=== PATIENT | male | born 1940 | race Caucasian/White ===

== ENCOUNTER 2021-12-02 07:27 | Inpatient (IN) ==
[2021-12-02 08:10] LABS: Basophils % 0.4 %; Red Cell Distribution Width 13.8 % (11.5-14.5)
[2021-12-02 08:11] LABS: Eosinophils # 0.3 K/mcL (0.0-0.6); Hematocrit 46.7 % (37.5-50.1); Hemoglobin 14.4 g/dL (12.9-16.9); Immature Granulocytes % 0.2 % (0-4); Immature Platelets 8.4 % (1.1-6.1); Lymphocytes # 0.9 K/mcL (0.6-4.6); Lymphocytes % 18.5 %; Mean Corpuscular HGB Conc 30.8 g/dL (31.6-35.5); Mean Corpuscular Hemoglobin 30.3 pg (28.0-33.3); Mean Corpuscular Volume 98.1 fL (83.0-100.0); Mean Platelet Volume 11.6 fL (9.4-12.4); Monocytes # 0.4 K/mcL (0.0-1.3); Neutrophils # 3.4 K/mcL (1.6-8.9); Platelet Count 130 K/mcL (140-400); Red Blood Count 4.76 M/mcL (4.19-5.50); Segmented Neutrophils % 67.9 %
[2021-12-02 08:30] LABS: Calcium 8.1 mg/dL (8.6-10.3); Potassium 4.3 mEq/L (3.5-5.1)
[2021-12-02 08:34] LABS: INR 1.1; Prothrombin Time 11.8 Seconds (9.4-12.1)
[2021-12-02 08:42] LABS: Troponin I 0.05 ng/mL (< 0.04)
[2021-12-02 08:46] LABS: Bacteria,Urine Few per hpf (None-Few); Bilirubin,Urine Negative (Negative); Blood,Urine Moderate (Negative); Clarity,Urine Clear (Clear); Color,Urine Yellow (Yellow); Glucose,Urine (UA) 70 mg/dL (Normal); Hyaline Casts,Urine Few per lpf (None Seen); Ketones,Urine Negative (Negative); Leukocyte Esterase,Urine Negative (Negative); Mucus,Urine Few per lpf (None-Few); Nitrite,Urine Negative (Negative); Protein,Urine >=600 mg/dL (Neg-Trace); Specific Gravity,Urine 1.017 (1.010-1.025); Squamous Epithelial Cell,Urine Few per hpf (None-Few); Urobilinogen,Urine Normal (Normal); WBC,Urine 0-3 per hpf (0-3)
[2021-12-02] MEDS ORDERED: Furosemide 40 MG/4 ML VIAL IVP ONE (08:54)
[2021-12-02] MEDS ORDERED: Ondansetron 4 MG/2 ML VIAL IVP PRN (09:20)
[2021-12-02] MEDS ORDERED: Melatonin 3 MG TABLET PO PRN (09:20)
[2021-12-02] MEDS ORDERED: Naloxone 0.4 MG/ML INJ IVP PRN (09:20)
[2021-12-02] MEDS ORDERED: Perflutren Lipid Microsphere 1.3 ML in 0.9 % Sodium Chloride 8.7 ML IVP PRN (09:22)
[2021-12-02 12:56] LABS: Troponin I 0.05 ng/mL (< 0.04)
[2021-12-02] MEDS: *HR* Heparin 5,000 UNIT/ML VIAL SQ SCH ×2 (15:22→21:35)
[2021-12-02 16:30] LABS: Albumin 2.7 g/dL (3.5-5.7); Uric Acid 7.2 mg/dL (2.3-7.6)
[2021-12-02] MEDS ORDERED: carvediloL 6.25 MG TABLET PO SCH (17:00)
[2021-12-02 18:03] LABS: Creatinine,Urine 41 mg/dL; Microalbumin,Urine > 1350 mg/L; Protein/Creatinine Ratio,Urine 5.42 mg/mg (0.00-0.20)
[2021-12-02] MEDS ORDERED: Furosemide 20 MG/2 ML VIAL IVP SCH (21:00)
[2021-12-02] MEDS: Furosemide 40 MG/4 ML VIAL IVP SCH (21:35)
[2021-12-03] MEDS: *HR* Heparin 5,000 UNIT/ML VIAL SQ SCH ×3 (05:23→21:56)
[2021-12-03] MEDS: Furosemide 40 MG/4 ML VIAL IVP SCH ×2 (08:34→21:55)
[2021-12-03 09:34] LABS: Basophils % 0.4 %
[2021-12-03 09:36] LABS: Eosinophils # 0.2 K/mcL (0.0-0.6); Eosinophils % 4.2 %; Hematocrit 43.6 % (37.5-50.1); Hemoglobin 13.5 g/dL (12.9-16.9); Immature Granulocytes % 0.2 % (0-4); Immature Platelets 8.3 % (1.1-6.1); Lymphocytes # 0.7 K/mcL (0.6-4.6); Lymphocytes % 14.8 %; Mean Corpuscular Hemoglobin 30.3 pg (28.0-33.3); Mean Corpuscular Volume 97.8 fL (83.0-100.0); Mean Platelet Volume 12.1 fL (9.4-12.4); Monocytes # 0.4 K/mcL (0.0-1.3); Monocytes % 7.9 %; Neutrophils # 3.5 K/mcL (1.6-8.9); Platelet Count 122 K/mcL (140-400); Red Blood Count 4.46 M/mcL (4.19-5.50); Segmented Neutrophils % 72.5 %; White Blood Count 4.8 K/mcL (4.3-11.1)
[2021-12-03 09:56] LABS: Chol/HDL Ratio 4.1 (0-4.9)
[2021-12-03 10:10] LABS: Thyroid Stimulating Hormone 1.623 mcIU/mL (0.340-5.600)
[2021-12-03] MEDS ORDERED: cefTRIAXone 1,000 MG in 0.9 % Sodium Chloride Mini Bag 100 ML IVPB SCH (12:00)
[2021-12-03] MEDS: cefTRIAXone 1,000 MG in Water for inj. (sterile) 10 ML IVP SCH (12:12)
[2021-12-03 13:35] LABS: Calcium 7.9 mg/dL (8.6-10.3); Potassium 4.5 mEq/L (3.5-5.1)
[2021-12-03] MEDS: carvediloL 6.25 MG TABLET PO SCH (16:32)
[2021-12-03] MEDS ORDERED: *HR* LORazepam 2 MG/ML VIAL IVP ONE (22:52)
[2021-12-04 01:35] LABS: Basophils % 0.4 %; Eosinophils # 0.2 K/mcL (0.0-0.6); Eosinophils % 4.8 %; Hematocrit 41.6 % (37.5-50.1); Hemoglobin 12.3 g/dL (12.9-16.9); Immature Granulocytes % 0.2 % (0-4); Lymphocytes # 0.7 K/mcL (0.6-4.6); Lymphocytes % 14.9 %; Mean Corpuscular HGB Conc 29.6 g/dL (31.6-35.5); Mean Corpuscular Hemoglobin 29.8 pg (28.0-33.3); Mean Corpuscular Volume 100.7 fL (83.0-100.0); Mean Platelet Volume 11.8 fL (9.4-12.4); Monocytes # 0.5 K/mcL (0.0-1.3); Monocytes % 9.1 %; Neutrophils # 3.5 K/mcL (1.6-8.9); Platelet Count 121 K/mcL (140-400); Red Blood Count 4.13 M/mcL (4.19-5.50); Red Cell Distribution Width 14.1 % (11.5-14.5); Segmented Neutrophils % 70.6 %
[2021-12-04 02:25] LABS: Estimated Average Glucose 128 mg/dl; Hemoglobin A1C 6.1 %
[2021-12-04 03:19] LABS: Calcium 7.7 mg/dL (8.6-10.3); Magnesium 1.8 mg/dL (1.6-2.6)
[2021-12-04 03:45] LABS: Complement C3 96 mg/dL (87-200)
[2021-12-04] MEDS: *HR* Heparin 5,000 UNIT/ML VIAL SQ SCH ×3 (05:25→21:44)
[2021-12-04] MEDS: carvediloL 6.25 MG TABLET PO SCH ×2 (09:48→16:32)
[2021-12-04] MEDS: Furosemide 40 MG/4 ML VIAL IVP SCH ×2 (09:48→21:44)
[2021-12-04] MEDS: cefTRIAXone 1,000 MG in Water for inj. (sterile) 10 ML IVP SCH (12:21)
[2021-12-04 13:21] LABS: ABG Base Excess 2 mEq/L (-2 to 3); ABG HCO3 38 mEq/L (21-27); ABG Oxygen Saturation 93 % (95-98); ABG PCO2 126 mmHg (35-45); ABG PH 7.09 pH Units (7.32-7.45); ABG PO2 97 mmHg (85-104); ABG TCO2 42 mEq/L (20-26)
[2021-12-04 15:31] LABS: ABG Base Excess 3 mEq/L (-2 to 3); ABG HCO3 36 mEq/L (21-27); ABG Oxygen Saturation 96 % (95-98); ABG PCO2 107 mmHg (35-45); ABG PH 7.14 pH Units (7.32-7.45); ABG PO2 118 mmHg (85-104); ABG TCO2 40 mEq/L (20-26)
[2021-12-04 17:25] LABS: ABG Base Excess 3 mEq/L (-2 to 3); ABG HCO3 36 mEq/L (21-27); ABG Oxygen Saturation 80 % (95-98); ABG PCO2 106 mmHg (35-45); ABG PH 7.14 pH Units (7.32-7.45); ABG PO2 61 mmHg (85-104); ABG TCO2 39 mEq/L (20-26)
[2021-12-04 19:28] LABS: Folate 5.4 ng/mL (3.0-16.0)
[2021-12-04] MEDS: Albumin 25% 25gram/100mL 25 GM/100 ML IV.SOLN IVPB SCH (20:15)
[2021-12-05] MEDS: *HR* Heparin 5,000 UNIT/ML VIAL SQ SCH ×3 (05:39→21:16)
[2021-12-05 07:52] LABS: Basophils % 0.2 %; Hematocrit 39.5 % (37.5-50.1); Hemoglobin 12.3 g/dL (12.9-16.9); Immature Granulocytes % 0.5 % (0-4); Lymphocytes # 0.6 K/mcL (0.6-4.6); Lymphocytes % 9.1 %; Mean Corpuscular HGB Conc 31.1 g/dL (31.6-35.5); Mean Corpuscular Hemoglobin 30.5 pg (28.0-33.3); Mean Platelet Volume 12.3 fL (9.4-12.4); Monocytes # 0.5 K/mcL (0.0-1.3); Monocytes % 8.4 %; Neutrophils # 5.2 K/mcL (1.6-8.9); Platelet Count 130 K/mcL (140-400); Red Blood Count 4.03 M/mcL (4.19-5.50); Red Cell Distribution Width 13.7 % (11.5-14.5); Segmented Neutrophils % 81.8 %; White Blood Count 6.3 K/mcL (4.3-11.1)
[2021-12-05 08:06] LABS: Calcium 8.2 mg/dL (8.6-10.3); Magnesium 1.8 mg/dL (1.6-2.6); Potassium 5.1 mEq/L (3.5-5.1)
[2021-12-05] MEDS: carvediloL 6.25 MG TABLET PO SCH ×2 (08:08→17:28)
[2021-12-05] MEDS: Furosemide 40 MG/4 ML VIAL IVP SCH ×2 (08:08→21:12)
[2021-12-05] MEDS: Albumin 25% 25gram/100mL 25 GM/100 ML IV.SOLN IVPB SCH ×2 (08:09→21:21)
[2021-12-05 08:21] LABS: Albumin 2.7 g/dL (3.5-5.7); Albumin/Globulin Ratio 1.3 (1.1-2.2); Bilirubin,Total 0.4 mg/dL (0.3-1.0); Calcium 8.1 mg/dL (8.6-10.3); Globulin 2.1 g/dL (2.4-3.5); Potassium 5.3 mEq/L (3.5-5.1); Total Protein 4.8 g/dL (6.4-8.9)
[2021-12-05] MEDS ORDERED: Thiamine (B-1) 100 MG TABLET PO SCH (09:00)
[2021-12-05 10:15] LABS: ABG Base Excess 5 mEq/L (-2 to 3); ABG HCO3 31 mEq/L (21-27); ABG Oxygen Saturation 88 % (95-98); ABG PCO2 55 mmHg (35-45); ABG PH 7.37 pH Units (7.32-7.45); ABG PO2 58 mmHg (85-104); ABG TCO2 33 mEq/L (20-26)
[2021-12-05] MEDS: cefTRIAXone 1,000 MG in Water for inj. (sterile) 10 ML IVP SCH (11:09)
[2021-12-05] MEDS ORDERED: Melatonin 3 MG TABLET PO PRN (11:34)
[2021-12-05] MEDS ORDERED: Naloxone 0.4 MG/ML INJ IVP PRN (11:34)
[2021-12-05] MEDS ORDERED: Ondansetron 4 MG/2 ML VIAL IVP PRN (11:34)
[2021-12-05 15:24] LABS: INR 1.1; Prothrombin Time 11.8 Seconds (9.4-12.1)
[2021-12-05] MEDS: Ergocalciferol (VIT D2) 50,000 UNIT (1.25MG) CAP PO SCH (15:33)
[2021-12-05 17:07] LABS: Glucose,Pleural Fluid 107 mg/dL (No Ref Range); LDH,Pleural Fluid 34 Units/L (No Ref Range); Total Protein,Pleural Fluid < 2.0 g/dL
[2021-12-05 19:02] LABS: RBC,Pleural Fluid < 2000 RBC/mcL
[2021-12-05 20:58] LABS: Appearance of Pleural Fl Clear (Clear); Basophils,Pleural Fluid 0 %; Eosinophils,Pleural Fluid 0 %; Monocytes,Pleural Fluid 0 %
[2021-12-05] MEDS ORDERED: Furosemide 40 MG/4 ML VIAL IVP SCH (21:00)
[2021-12-06] MEDS ORDERED: *HR* LORazepam 2 MG/ML VIAL IVP ONE (01:05)
[2021-12-06 04:49] LABS: Alpha 2 Globulin (PEP) 0.74 g/dL (0.48-1.05); Beta Globulin (PEP) 0.62 g/dL (0.48-1.10)
[2021-12-06] MEDS: *HR* Heparin 5,000 UNIT/ML VIAL SQ SCH ×3 (04:58→20:58)
[2021-12-06 05:29] LABS: Basophils % 0.2 %; Red Cell Distribution Width 14.1 % (11.5-14.5)
[2021-12-06 05:31] LABS: Eosinophils # 0.1 K/mcL (0.0-0.6); Eosinophils % 1.5 %; Hematocrit 35.6 % (37.5-50.1); Hemoglobin 10.9 g/dL (12.9-16.9); Immature Granulocytes % 0.2 % (0-4); Immature Platelets 8.3 % (1.1-6.1); Lymphocytes # 0.8 K/mcL (0.6-4.6); Lymphocytes % 16.5 %; Mean Corpuscular HGB Conc 30.6 g/dL (31.6-35.5); Mean Corpuscular Hemoglobin 29.9 pg (28.0-33.3); Mean Corpuscular Volume 97.5 fL (83.0-100.0); Mean Platelet Volume 11.6 fL (9.4-12.4); Monocytes # 0.4 K/mcL (0.0-1.3); Neutrophils # 3.5 K/mcL (1.6-8.9); Platelet Count 100 K/mcL (140-400); Red Blood Count 3.65 M/mcL (4.19-5.50); Segmented Neutrophils % 72.6 %; White Blood Count 4.8 K/mcL (4.3-11.1)
[2021-12-06 05:51] LABS: BUN/Creatinine Ratio 20 (6-26); Blood Urea Nitrogen 61 mg/dL (8-23); Calcium 7.9 mg/dL (8.6-10.3); Carbon Dioxide 32 mEq/L (23-29); Chloride 106 mEq/L (98-107); Glucose 88 mg/dL (70-105); Magnesium 1.9 mg/dL (1.6-2.6); Osmolality,Calculated 315 (280-300); Potassium 4.6 mEq/L (3.5-5.1); Sodium 144 mEq/L (136-145); eGFR For African Americans 24 (> 60); eGFR For Non-African Americans 20 (> 60)
[2021-12-06] MEDS ORDERED: *HR* Dextrose 50 % in Water (Syg) 50 ML SYRINGE IVP ONE (07:45)
[2021-12-06] MEDS ORDERED: *HR* Dextrose 50 % in Water (Syg) 50 ML SYRINGE ONE (07:54)
[2021-12-06] MEDS: Thiamine (B-1) 100 MG TABLET PO SCH (07:59)
[2021-12-06] MEDS: carvediloL 6.25 MG TABLET PO SCH ×2 (07:59→16:58)
[2021-12-06] MEDS: Albumin 25% 25gram/100mL 25 GM/100 ML IV.SOLN IVPB SCH ×2 (08:01→20:57)
[2021-12-06] MEDS ORDERED: Dextrose 4 GM Chewable Tablets PO PRN ×2 (09:00)
[2021-12-06] MEDS ORDERED: D5% in Water 1,000 ML IVC PRN (09:00)
[2021-12-06] MEDS ORDERED: *HR* Dextrose 50 % in Water (Syg) 50 ML SYRINGE IVP PRN (09:00)
[2021-12-06] MEDS: Furosemide 40 MG/4 ML VIAL IVP SCH (10:20)
[2021-12-06 10:49] LABS: Estimated Average Glucose 126 mg/dl
[2021-12-06 10:53] LABS: Lactate Dehydrogenase 134 Units/L (140-271); Total Protein 4.6 g/dL (6.4-8.9)
[2021-12-06] MEDS ORDERED: *HR* LORazepam 2 MG/ML VIAL IVP STA (12:20)
[2021-12-06] MEDS: cefTRIAXone 1,000 MG in 0.9 % Sodium Chloride 10 ML IVP SCH (12:27)
[2021-12-06 12:32] LABS: ABG Base Excess 4 mEq/L (-2 to 3); ABG HCO3 31 mEq/L (21-27); ABG Oxygen Saturation 94 % (95-98); ABG PCO2 58 mmHg (35-45); ABG PH 7.34 pH Units (7.32-7.45); ABG PO2 78 mmHg (85-104); ABG TCO2 33 mEq/L (20-26)
[2021-12-06] MEDS ORDERED: Dexmedetomidine HCl 400 MCG/100 ML MLS IVC SCH (13:15)
[2021-12-06 14:26] LABS: IFE Reflexed NOT DONE
[2021-12-06] MEDS: Dexmedetomidine HCl 400 MCG/100 ML MLS IVC SCH (14:51)
[2021-12-06] MEDS ORDERED: Furosemide 40 MG/4 ML VIAL IVP ONE (17:44)
[2021-12-06] MEDS ORDERED: Furosemide 20 MG/2 ML VIAL IVP ONE (20:47)
[2021-12-06] MEDS ORDERED: Ziprasidone 10 MG, Closed System Device IM Kit 1 EACH in Water for inj. (sterile) 0.5 ML IM PRN (21:34)
[2021-12-07] MEDS: *HR* Heparin 5,000 UNIT/ML VIAL SQ SCH ×3 (06:47→21:34)
[2021-12-07 07:54] LABS: Basophils % 0.2 %; Eosinophils % 0.4 %; Hematocrit 39.7 % (37.5-50.1); Immature Granulocytes % 0.4 % (0-4); Lymphocytes # 0.4 K/mcL (0.6-4.6); Lymphocytes % 7.2 %; Mean Corpuscular HGB Conc 31.5 g/dL (31.6-35.5); Mean Corpuscular Hemoglobin 30.7 pg (28.0-33.3); Mean Corpuscular Volume 97.5 fL (83.0-100.0); Mean Platelet Volume 12.5 fL (9.4-12.4); Monocytes # 0.5 K/mcL (0.0-1.3); Monocytes % 8.3 %; Neutrophils # 4.7 K/mcL (1.6-8.9); Platelet Count 107 K/mcL (140-400); Red Blood Count 4.07 M/mcL (4.19-5.50); Segmented Neutrophils % 83.5 %; White Blood Count 5.6 K/mcL (4.3-11.1)
[2021-12-07 07:56] LABS: Hemoglobin 12.5 g/dL (12.9-16.9)
[2021-12-07] MEDS ORDERED: carvediloL 6.25 MG TABLET PO SCH (08:00)
[2021-12-07 08:17] LABS: Calcium 8.4 mg/dL (8.6-10.3); Potassium 4.6 mEq/L (3.5-5.1)
[2021-12-07] MEDS: Thiamine (B-1) 100 MG TABLET PO SCH (08:49)
[2021-12-07] MEDS: Cyanocobalamin (B-12) 1,000 MCG TABLET PO SCH (08:49)
[2021-12-07] MEDS: Albumin 25% 25gram/100mL 25 GM/100 ML IV.SOLN IVPB SCH ×2 (08:49→21:34)
[2021-12-07 11:04] LABS: ANA IgG by ELISA DETECTED (None Detected)
[2021-12-07] MEDS: Dexmedetomidine HCl 400 MCG/100 ML MLS IVC SCH (11:12)
[2021-12-07] MEDS: cefTRIAXone 1,000 MG in 0.9 % Sodium Chloride 10 ML IVP SCH (12:01)
[2021-12-07] MEDS ORDERED: Bumetanide 1 MG/4 ML VIAL IVP ONE (12:04)
[2021-12-07] MEDS: QUEtiapine Fumarate 25 MG TABLET PO SCH (21:34)
[2021-12-08 05:33] LABS: Basophils % 0.2 %; Hemoglobin 11.1 g/dL (12.9-16.9); Red Cell Distribution Width 13.9 % (11.5-14.5)
[2021-12-08 05:35] LABS: Eosinophils # 0.1 K/mcL (0.0-0.6); Eosinophils % 3.2 %; Hematocrit 35.6 % (37.5-50.1); Immature Granulocytes % 0.5 % (0-4); Immature Platelets 9.4 % (1.1-6.1); Lymphocytes # 0.6 K/mcL (0.6-4.6); Lymphocytes % 15.5 %; Mean Corpuscular HGB Conc 31.2 g/dL (31.6-35.5); Mean Corpuscular Hemoglobin 30.4 pg (28.0-33.3); Mean Corpuscular Volume 97.5 fL (83.0-100.0); Mean Platelet Volume 12.3 fL (9.4-12.4); Monocytes # 0.5 K/mcL (0.0-1.3); Monocytes % 11.7 %; Neutrophils # 2.8 K/mcL (1.6-8.9); Red Blood Count 3.65 M/mcL (4.19-5.50); Segmented Neutrophils % 68.9 %; White Blood Count 4.1 K/mcL (4.3-11.1)
[2021-12-08 05:46] LABS: Calcium 8.1 mg/dL (8.6-10.3); Potassium 4.3 mEq/L (3.5-5.1)
[2021-12-08 06:10] LABS: Platelet Count 86 K/mcL (140-400)
[2021-12-08 06:12] LABS: Large Platelets Present (Not Present); Platelet Estimate Slight Decrease (Normal)
[2021-12-08] MEDS: *HR* Heparin 5,000 UNIT/ML VIAL SQ SCH ×3 (06:44→20:40)
[2021-12-08] MEDS: Dexmedetomidine HCl 400 MCG/100 ML MLS IVC SCH (07:23)
[2021-12-08] MEDS: QUEtiapine Fumarate 25 MG TABLET PO SCH ×2 (08:01→20:40)
[2021-12-08] MEDS: Thiamine (B-1) 100 MG TABLET PO SCH (08:01)
[2021-12-08] MEDS: Albumin 25% 25gram/100mL 25 GM/100 ML IV.SOLN IVPB SCH ×2 (08:02→20:40)
[2021-12-08] MEDS: Cyanocobalamin (B-12) 1,000 MCG TABLET PO SCH (08:02)
[2021-12-08] MEDS: cefTRIAXone 1,000 MG in 0.9 % Sodium Chloride 10 ML IVP SCH (11:21)
[2021-12-08 17:02] LABS: ANA HEp-2 IgG IFA DETECTED (<1:80); Anti Nuclear Ab Pattern HOMOGENEOUS
[2021-12-09] MEDS: *HR* Heparin 5,000 UNIT/ML VIAL SQ SCH ×3 (05:29→22:15)
[2021-12-09 06:51] LABS: Hematocrit 37.8 % (37.5-50.1); Immature Granulocytes % 0.2 % (0-4); Mean Platelet Volume 12.3 fL (9.4-12.4)
[2021-12-09 06:53] LABS: Basophils % 0.2 %; Eosinophils # 0.2 K/mcL (0.0-0.6); Eosinophils % 5.1 %; Hemoglobin 11.5 g/dL (12.9-16.9); Immature Platelets 9.8 % (1.1-6.1); Lymphocytes # 0.7 K/mcL (0.6-4.6); Lymphocytes % 16.5 %; Mean Corpuscular HGB Conc 30.4 g/dL (31.6-35.5); Mean Corpuscular Hemoglobin 29.6 pg (28.0-33.3); Mean Corpuscular Volume 97.4 fL (83.0-100.0); Monocytes # 0.5 K/mcL (0.0-1.3); Monocytes % 10.1 %; Neutrophils # 3.1 K/mcL (1.6-8.9); Red Blood Count 3.88 M/mcL (4.19-5.50); Red Cell Distribution Width 13.9 % (11.5-14.5); Segmented Neutrophils % 67.9 %; White Blood Count 4.5 K/mcL (4.3-11.1)
[2021-12-09 06:57] LABS: Platelet Count 94 K/mcL (140-400)
[2021-12-09] MEDS: Albumin 25% 25gram/100mL 25 GM/100 ML IV.SOLN IVPB SCH (08:24)
[2021-12-09] MEDS: Cyanocobalamin (B-12) 1,000 MCG TABLET PO SCH (08:25)
[2021-12-09] MEDS: Thiamine (B-1) 100 MG TABLET PO SCH (08:25)
[2021-12-09] MEDS: cefTRIAXone 1,000 MG in 0.9 % Sodium Chloride 10 ML IVP SCH (13:06)
[2021-12-09] MEDS ORDERED: carvediloL 6.25 MG TABLET PO ONE (14:25)
[2021-12-09] MEDS ORDERED: amLODIPine 5 MG TABLET PO ONE (14:30)
[2021-12-09] MEDS ORDERED: Isosorbide MONOnitrate (24 HR) 30 MG TAB.ER.24H PO ONE (14:32)
[2021-12-09] MEDS ORDERED: Isosorbide MONOnitrate (24 HR) 30 MG TAB.ER.24H PO SCH (21:00)
[2021-12-09] MEDS: QUEtiapine Fumarate 25 MG TABLET PO SCH (22:14)
[2021-12-10 03:14] LABS: Basophils % 0.3 %; Hemoglobin 11.1 g/dL (12.9-16.9); Red Cell Distribution Width 13.5 % (11.5-14.5)
[2021-12-10 03:16] LABS: Eosinophils # 0.1 K/mcL (0.0-0.6); Eosinophils % 3.9 %; Hematocrit 36.2 % (37.5-50.1); Immature Granulocytes % 0.3 % (0-4); Immature Platelets 9.6 % (1.1-6.1); Lymphocytes # 0.5 K/mcL (0.6-4.6); Lymphocytes % 14.8 %; Mean Corpuscular HGB Conc 30.7 g/dL (31.6-35.5); Mean Corpuscular Hemoglobin 30.5 pg (28.0-33.3); Mean Corpuscular Volume 99.5 fL (83.0-100.0); Monocytes # 0.4 K/mcL (0.0-1.3); Monocytes % 9.8 %; Neutrophils # 2.6 K/mcL (1.6-8.9); Red Blood Count 3.64 M/mcL (4.19-5.50); Segmented Neutrophils % 70.9 %; White Blood Count 3.6 K/mcL (4.3-11.1)
[2021-12-10 03:21] LABS: Platelet Count 91 K/mcL (140-400)
[2021-12-10 03:40] LABS: Calcium 7.9 mg/dL (8.6-10.3); Potassium 4.3 mEq/L (3.5-5.1)
[2021-12-10] MEDS: *HR* Heparin 5,000 UNIT/ML VIAL SQ SCH ×3 (06:59→22:47)
[2021-12-10] MEDS ORDERED: amLODIPine 5 MG TABLET PO SCH (09:00)
[2021-12-10] MEDS ORDERED: Isosorbide MONOnitrate (24 HR) 30 MG TAB.ER.24H PO SCH (09:00)
[2021-12-10] MEDS: Thiamine (B-1) 100 MG TABLET PO SCH (09:21)
[2021-12-10] MEDS: Cyanocobalamin (B-12) 1,000 MCG TABLET PO SCH (09:25)
[2021-12-10] MEDS: Furosemide 40 MG/4 ML VIAL IVP SCH (11:13)
[2021-12-10] MEDS: cefTRIAXone 1,000 MG in 0.9 % Sodium Chloride 10 ML IVP SCH (11:14)
[2021-12-10] MEDS: carvediloL 6.25 MG TABLET PO SCH ×2 (12:15→13:09)
[2021-12-10] MEDS: amLODIPine 5 MG TABLET PO SCH (12:16)
[2021-12-10] MEDS ORDERED: Saline Nasal Spray 44 ML BOTTLE NS PRN (18:02)
[2021-12-10 19:06] LABS: Albumin 3.2 g/dL (3.5-5.7); Albumin/Globulin Ratio 1.8 (1.1-2.2); Bilirubin,Direct 0.1 mg/dL (0.0-0.2); Bilirubin,Indirect 0.3 mg/dL (0.0-1.0); Bilirubin,Total 0.4 mg/dL (0.3-1.0); Globulin 1.8 g/dL (2.4-3.5)
[2021-12-10] MEDS: QUEtiapine Fumarate 25 MG TABLET PO SCH (22:46)
[2021-12-11 06:35] LABS: Basophils % 0.5 %; Eosinophils # 0.1 K/mcL (0.0-0.6); Eosinophils % 2.5 %; Hematocrit 43.9 % (37.5-50.1); Immature Granulocytes % 1.1 % (0-4); Lymphocytes # 0.6 K/mcL (0.6-4.6); Mean Corpuscular HGB Conc 29.4 g/dL (31.6-35.5); Mean Corpuscular Hemoglobin 30.7 pg (28.0-33.3); Mean Corpuscular Volume 104.5 fL (83.0-100.0); Mean Platelet Volume 12.3 fL (9.4-12.4); Monocytes # 0.5 K/mcL (0.0-1.3); Monocytes % 8.1 %; Neutrophils # 4.3 K/mcL (1.6-8.9); Platelet Count 129 K/mcL (140-400); Red Cell Distribution Width 13.9 % (11.5-14.5); Segmented Neutrophils % 76.8 %; White Blood Count 5.6 K/mcL (4.3-11.1)
[2021-12-11 06:36] LABS: Hemoglobin 12.9 g/dL (12.9-16.9)
[2021-12-11] MEDS: *HR* Heparin 5,000 UNIT/ML VIAL SQ SCH ×3 (06:44→23:38)
[2021-12-11 06:51] LABS: Calcium 8.4 mg/dL (8.6-10.3)
[2021-12-11 07:34] LABS: ABG Base Excess 3 mEq/L (-2 to 3); ABG HCO3 36 mEq/L (21-27); ABG Oxygen Saturation 100 % (95-98); ABG PCO2 99 mmHg (35-45); ABG PH 7.16 pH Units (7.32-7.45); ABG PO2 344 mmHg (85-104); ABG TCO2 39 mEq/L (20-26)
[2021-12-11] MEDS ORDERED: Norepinephrine 4 MG/254 ML IV.SOLN IVC ONE (07:34)
[2021-12-11] MEDS: FentaNYL (PF) 1,000 MCG/100 ML IV.SOLN IVC SCH ×4 (07:41→22:31)
[2021-12-11 08:27] LABS: Basophils % 0.2 %; Hematocrit 39.7 % (37.5-50.1); Hemoglobin 11.7 g/dL (12.9-16.9); Immature Granulocytes % 0.7 % (0-4); Lymphocytes # 0.3 K/mcL (0.6-4.6); Lymphocytes % 6.1 %; Mean Corpuscular HGB Conc 29.5 g/dL (31.6-35.5); Mean Corpuscular Hemoglobin 30.3 pg (28.0-33.3); Mean Corpuscular Volume 102.8 fL (83.0-100.0); Mean Platelet Volume 12.1 fL (9.4-12.4); Monocytes # 0.2 K/mcL (0.0-1.3); Monocytes % 5.1 %; Neutrophils # 3.6 K/mcL (1.6-8.9); Platelet Count 107 K/mcL (140-400); Red Blood Count 3.86 M/mcL (4.19-5.50); Red Cell Distribution Width 13.9 % (11.5-14.5); Segmented Neutrophils % 86.9 %; White Blood Count 4.1 K/mcL (4.3-11.1)
[2021-12-11 08:34] LABS: Prothrombin Time 11.3 Seconds (9.4-12.1)
[2021-12-11 08:53] LABS: Albumin 3.2 g/dL (3.5-5.7); Albumin/Globulin Ratio 1.8 (1.1-2.2); Bilirubin,Total 0.4 mg/dL (0.3-1.0); Calcium 8.2 mg/dL (8.6-10.3); Globulin 1.8 g/dL (2.4-3.5); Magnesium 2.2 mg/dL (1.6-2.6); Phosphorous 5.3 mg/dL (2.7-4.5); Potassium 5.2 mEq/L (3.5-5.1); Troponin I 0.21 ng/mL (< 0.04)
[2021-12-11] MEDS: carvediloL 6.25 MG TABLET PO SCH ×2 (09:33→18:15)
[2021-12-11 09:47] LABS: ABG Base Excess 5 mEq/L (-2 to 3); ABG HCO3 31 mEq/L (21-27); ABG Oxygen Saturation 99 % (95-98); ABG PCO2 50 mmHg (35-45); ABG PO2 131 mmHg (85-104); ABG TCO2 32 mEq/L (20-26); Blood Gas Modality ASSIST CONTROL; Blood Gas VT 450 cc
[2021-12-11] MEDS: Thiamine (B-1) 100 MG TABLET PO SCH (10:56)
[2021-12-11] MEDS: amLODIPine 5 MG TABLET PO SCH (10:56)
[2021-12-11] MEDS: Cyanocobalamin (B-12) 1,000 MCG TABLET PO SCH (10:56)
[2021-12-11] MEDS: Furosemide 40 MG/4 ML VIAL IVP SCH (10:56)
[2021-12-11] MEDS ORDERED: *HR* Etomidate 20 MG/10 ML AMPUL IVP ONE (12:14)
[2021-12-11] MEDS ORDERED: Lidocaine -MPF 2% 5 ML VIAL SQ ONE (12:14)
[2021-12-11] MEDS: cefTRIAXone 1,000 MG in 0.9 % Sodium Chloride 10 ML IVP SCH (12:56)
[2021-12-11] MEDS ORDERED: *HR* Heparin 10,000 UNIT/10 ML VIAL ONE (14:13)
[2021-12-11] MEDS ORDERED: Heparin 1,000 UNITS/500 mL 1,000 ML ONE (14:13)
[2021-12-11] MEDS ORDERED: Nitroglycerin 1,000 MCG/5 ML VIAL IV ONE (14:14)
[2021-12-11] MEDS ORDERED: 0.9 % Sodium Chloride 2,000 ML ONE (14:14)
[2021-12-11] MEDS ORDERED: ISOVUE-370 200 ML INFUS..BTL ONE (14:14)
[2021-12-11] MEDS ORDERED: *HR* Midazolam HCl 2 MG/2 ML VIAL ONE (16:04)
[2021-12-11] MEDS ORDERED: Heparin 1,000 UNITS/500 mL 500 ML ONE (16:20)
[2021-12-11] MEDS ORDERED: *HR* Atropine Sulfate 1 MG/10 ML SYRINGE ONE (18:38)
[2021-12-11] MEDS: Midazolam HCl 50 MG/50 ML IV.SOLN IVC SCH (20:08)
[2021-12-11] MEDS ORDERED: 0.9 % Sodium Chloride 250 ML ONE (20:33)
[2021-12-11] MEDS: Dexmedetomidine HCl 400 MCG/100 ML MLS IVC SCH (21:29)
[2021-12-11] MEDS: Norepinephrine 4 MG/254 ML IV.SOLN IVC SCH (21:29)
[2021-12-11] MEDS: QUEtiapine Fumarate 25 MG TABLET PO SCH (23:38)
[2021-12-12] MEDS: Dexmedetomidine HCl 400 MCG/100 ML MLS IVC SCH ×2 (00:59→21:45)
[2021-12-12] MEDS: FentaNYL (PF) 1,000 MCG/100 ML IV.SOLN IVC SCH (04:05)
[2021-12-12 04:24] LABS: ABG Base Excess 8 mEq/L (-2 to 3); ABG HCO3 34 mEq/L (21-27); ABG Oxygen Saturation 97 % (95-98); ABG PCO2 54 mmHg (35-45); ABG PH 7.41 pH Units (7.32-7.45); ABG PO2 91 mmHg (85-104); ABG TCO2 36 mEq/L (20-26); Blood Gas Modality ASSIST CONTROL; Blood Gas VT 450 cc
[2021-12-12] MEDS: *HR* Heparin 5,000 UNIT/ML VIAL SQ SCH ×3 (06:37→23:27)
[2021-12-12] MEDS: Cyanocobalamin (B-12) 1,000 MCG TABLET PO SCH (07:26)
[2021-12-12] MEDS: Furosemide 40 MG/4 ML VIAL IVP SCH ×2 (07:26→16:33)
[2021-12-12] MEDS: Thiamine (B-1) 100 MG TABLET PO SCH (07:27)
[2021-12-12] MEDS: carvediloL 6.25 MG TABLET PO SCH ×2 (07:27→15:29)
[2021-12-12] MEDS: amLODIPine 5 MG TABLET PO SCH (07:27)
[2021-12-12 07:28] LABS: Basophils % 0.3 %; Eosinophils # 0.3 K/mcL (0.0-0.6); Eosinophils % 3.2 %; Hematocrit 39.5 % (37.5-50.1); Hemoglobin 12.4 g/dL (12.9-16.9); Immature Granulocytes % 0.3 % (0-4); Lymphocytes # 0.7 K/mcL (0.6-4.6); Lymphocytes % 9.1 %; Mean Corpuscular HGB Conc 31.4 g/dL (31.6-35.5); Mean Corpuscular Hemoglobin 30.7 pg (28.0-33.3); Mean Corpuscular Volume 97.8 fL (83.0-100.0); Mean Platelet Volume 12.1 fL (9.4-12.4); Monocytes # 0.9 K/mcL (0.0-1.3); Neutrophils # 5.9 K/mcL (1.6-8.9); Platelet Count 114 K/mcL (140-400); Red Blood Count 4.04 M/mcL (4.19-5.50); Red Cell Distribution Width 13.6 % (11.5-14.5); Segmented Neutrophils % 76.1 %
[2021-12-12] MEDS: Artificial Tears SOLN 15 ML BOTTLE BOTH EYES SCH ×4 (07:32→21:45)
[2021-12-12] MEDS: Chlorhexidine Rinse 15 ML MOUTHWASH MM SCH ×2 (07:32→23:26)
[2021-12-12 07:43] LABS: White Blood Count 7.8 K/mcL (4.3-11.1)
[2021-12-12] MEDS: Norepinephrine 4 MG/254 ML IV.SOLN IVC SCH ×2 (08:05→21:44)
[2021-12-12 08:23] LABS: Calcium 8.3 mg/dL (8.6-10.3); Potassium 4.6 mEq/L (3.5-5.1)
[2021-12-12] MEDS ORDERED: Pantoprazole 40 MG VIAL IVP ONE (10:09)
[2021-12-12] MEDS ORDERED: Artificial Tears SOLN 15 ML BOTTLE BOTH EYES PRN (10:09)
[2021-12-12] MEDS: Pantoprazole 40 MG VIAL IVP SCH (12:19)
[2021-12-12] MEDS: Ergocalciferol (VIT D2) 50,000 UNIT (1.25MG) CAP PO SCH (13:01)
[2021-12-12] MEDS: Midazolam HCl 50 MG/50 ML IV.SOLN IVC SCH (15:28)
[2021-12-12] MEDS: hydrALAZINE 25 MG TABLET PO SCH ×2 (15:28→23:27)
[2021-12-12] MEDS: QUEtiapine Fumarate 25 MG TABLET PO SCH (21:45)
[2021-12-13 05:23] LABS: Basophils % 0.2 %
[2021-12-13 05:25] LABS: Eosinophils % 0.4 %; Hematocrit 39.5 % (37.5-50.1); Hemoglobin 12.4 g/dL (12.9-16.9); Immature Granulocytes % 0.4 % (0-4); Immature Platelets 7.1 % (1.1-6.1); Lymphocytes # 0.6 K/mcL (0.6-4.6); Mean Corpuscular HGB Conc 31.4 g/dL (31.6-35.5); Mean Corpuscular Hemoglobin 30.8 pg (28.0-33.3); Mean Platelet Volume 12.3 fL (9.4-12.4); Monocytes # 0.7 K/mcL (0.0-1.3); Monocytes % 7.5 %; Neutrophils # 8.5 K/mcL (1.6-8.9); Platelet Count 133 K/mcL (140-400); Red Blood Count 4.03 M/mcL (4.19-5.50); Red Cell Distribution Width 13.8 % (11.5-14.5); Segmented Neutrophils % 85.5 %; White Blood Count 9.9 K/mcL (4.3-11.1)
[2021-12-13 05:43] LABS: Potassium 4.6 mEq/L (3.5-5.1)
[2021-12-13] MEDS: *HR* Heparin 5,000 UNIT/ML VIAL SQ SCH ×3 (06:29→21:19)
[2021-12-13] MEDS: Pantoprazole 40 MG VIAL IVP SCH (09:43)
[2021-12-13] MEDS: Furosemide 40 MG/4 ML VIAL IVP SCH ×2 (09:43→18:34)
[2021-12-13] MEDS: Chlorhexidine Rinse 15 ML MOUTHWASH MM SCH (09:44)
[2021-12-13] MEDS: Artificial Tears SOLN 15 ML BOTTLE BOTH EYES SCH ×3 (09:44→18:32)
[2021-12-13] MEDS: Thiamine (B-1) 100 MG TABLET PO SCH (09:55)
[2021-12-13] MEDS: amLODIPine 5 MG TABLET PO SCH (09:55)
[2021-12-13] MEDS: Cyanocobalamin (B-12) 1,000 MCG TABLET PO SCH (09:55)
[2021-12-13] MEDS: hydrALAZINE 25 MG TABLET PO SCH ×3 (09:58→23:59)
[2021-12-13] MEDS: carvediloL 6.25 MG TABLET PO SCH ×2 (10:00→18:34)
[2021-12-13] MEDS ORDERED: metOLazone 5 MG TABLET PO SCH (11:00)
[2021-12-13] MEDS: Norepinephrine 4 MG/254 ML IV.SOLN IVC SCH (11:43)
[2021-12-13] MEDS: Midazolam HCl 50 MG/50 ML IV.SOLN IVC SCH (14:50)
[2021-12-13] MEDS: Dexmedetomidine HCl 400 MCG/100 ML MLS IVC SCH (14:53)
[2021-12-13] MEDS ORDERED: Dexmedetomidine HCl 400 MCG/100 ML MLS IVC SCH (18:52)
[2021-12-13] MEDS ORDERED: Artificial Tears SOLN 15 ML BOTTLE BOTH EYES PRN (18:52)
[2021-12-13] MEDS ORDERED: Saline Nasal Spray 44 ML BOTTLE NS PRN (18:52)
[2021-12-13] MEDS ORDERED: D5% in Water 1,000 ML IVC PRN (18:52)
[2021-12-13] MEDS ORDERED: *HR* Dextrose 50 % in Water (Syg) 50 ML SYRINGE IVP PRN (18:52)
[2021-12-13] MEDS ORDERED: Ondansetron 4 MG/2 ML VIAL IVP PRN (18:52)
[2021-12-13] MEDS ORDERED: FentaNYL (PF) 1,000 MCG/100 ML IV.SOLN IVC SCH (18:52)
[2021-12-13] MEDS ORDERED: Dextrose 4 GM Chewable Tablets PO PRN ×2 (18:52)
[2021-12-13] MEDS ORDERED: Naloxone 0.4 MG/ML INJ IVP PRN (18:52)
[2021-12-13] MEDS ORDERED: Chlorhexidine Rinse 15 ML MOUTHWASH MM SCH (21:00)
[2021-12-13] MEDS ORDERED: Artificial Tears SOLN 15 ML BOTTLE BOTH EYES SCH (21:00)
[2021-12-13] MEDS: Melatonin 3 MG TABLET PO PRN (21:17)
[2021-12-13] MEDS: QUEtiapine Fumarate 25 MG TABLET PO SCH (21:18)
[2021-12-14 05:29] LABS: Hematocrit 35.7 % (37.5-50.1); Mean Corpuscular HGB Conc 30.3 g/dL (31.6-35.5); Mean Corpuscular Hemoglobin 29.9 pg (28.0-33.3); Mean Corpuscular Volume 98.9 fL (83.0-100.0); Mean Platelet Volume 12.2 fL (9.4-12.4); Platelet Count 122 K/mcL (140-400); Red Blood Count 3.61 M/mcL (4.19-5.50); Red Cell Distribution Width 13.9 % (11.5-14.5); White Blood Count 6.4 K/mcL (4.3-11.1)
[2021-12-14 05:30] LABS: Hemoglobin 10.8 g/dL (12.9-16.9)
[2021-12-14] MEDS: *HR* Heparin 5,000 UNIT/ML VIAL SQ SCH ×2 (05:33→14:22)
[2021-12-14 05:52] LABS: Calcium 8.4 mg/dL (8.6-10.3); Magnesium 2.4 mg/dL (1.6-2.6); Potassium 4.8 mEq/L (3.5-5.1)
[2021-12-14] MEDS: Pantoprazole 40 MG VIAL IVP SCH (08:20)
[2021-12-14] MEDS: Furosemide 40 MG/4 ML VIAL IVP SCH ×2 (08:21→17:28)
[2021-12-14] MEDS: hydrALAZINE 25 MG TABLET PO SCH ×2 (08:28→15:16)
[2021-12-14] MEDS: Ergocalciferol (VIT D2) 50,000 UNIT (1.25MG) CAP PO SCH (08:28)
[2021-12-14] MEDS: carvediloL 6.25 MG TABLET PO SCH ×2 (08:28→15:16)
[2021-12-14] MEDS: Cyanocobalamin (B-12) 1,000 MCG TABLET PO SCH (08:29)
[2021-12-14] MEDS: Thiamine (B-1) 100 MG TABLET PO SCH (08:29)
[2021-12-14 08:43] LABS: ABG Base Excess 5 mEq/L (-2 to 3); ABG HCO3 33 mEq/L (21-27); ABG Oxygen Saturation 89 % (95-98); ABG PCO2 73 mmHg (35-45); ABG PH 7.27 pH Units (7.32-7.45); ABG PO2 67 mmHg (85-104); ABG TCO2 36 mEq/L (20-26)
[2021-12-14] MEDS ORDERED: metOLazone 5 MG TABLET PO SCH (09:00)
[2021-12-14] MEDS ORDERED: amLODIPine 5 MG TABLET PO SCH (09:00)
[2021-12-14] MEDS: Albumin 25% 25gram/100mL 25 GM/100 ML IV.SOLN IVPB SCH (14:22)
[2021-12-14] MEDS: Levalbuterol Neb 1.25 MG/3 ML IH SCH ×2 (16:27→20:17)
[2021-12-14 17:00] LABS: ABG Base Excess 6 mEq/L (-2 to 3); ABG HCO3 33 mEq/L (21-27); ABG Oxygen Saturation 98 % (95-98); ABG PCO2 65 mmHg (35-45); ABG PH 7.32 pH Units (7.32-7.45); ABG PO2 118 mmHg (85-104); ABG TCO2 35 mEq/L (20-26)
[2021-12-14] MEDS: QUEtiapine Fumarate 25 MG TABLET PO SCH (20:50)
[2021-12-15 00:45] LABS: Basophils % 0.3 %; Eosinophils # 0.1 K/mcL (0.0-0.6); Hematocrit 37.3 % (37.5-50.1); Hemoglobin 11.3 g/dL (12.9-16.9); Immature Granulocytes % 0.3 % (0-4); Lymphocytes # 0.6 K/mcL (0.6-4.6); Lymphocytes % 9.1 %; Mean Corpuscular HGB Conc 30.3 g/dL (31.6-35.5); Mean Corpuscular Hemoglobin 30.5 pg (28.0-33.3); Mean Corpuscular Volume 100.5 fL (83.0-100.0); Mean Platelet Volume 11.7 fL (9.4-12.4); Monocytes # 0.5 K/mcL (0.0-1.3); Monocytes % 7.5 %; Neutrophils # 5.6 K/mcL (1.6-8.9); Platelet Count 145 K/mcL (140-400); Red Blood Count 3.71 M/mcL (4.19-5.50); Segmented Neutrophils % 81.8 %; White Blood Count 6.9 K/mcL (4.3-11.1)
[2021-12-15 01:01] LABS: Calcium 9.1 mg/dL (8.6-10.3); Magnesium 2.6 mg/dL (1.6-2.6); Potassium 5.2 mEq/L (3.5-5.1)
[2021-12-15] MEDS: hydrALAZINE 25 MG TABLET PO SCH ×3 (02:34→19:05)
[2021-12-15] MEDS: Albumin 25% 25gram/100mL 25 GM/100 ML IV.SOLN IVPB SCH ×4 (02:47→20:09)
[2021-12-15] MEDS: Levalbuterol Neb 1.25 MG/3 ML IH SCH ×4 (04:23→20:35)
[2021-12-15] MEDS: Pantoprazole 40 MG VIAL IVP SCH (09:57)
[2021-12-15] MEDS ORDERED: 0.9 % Sodium Chloride 1,000 ML IVC SCH (10:30)
[2021-12-15] MEDS: 0.9 % Sodium Chloride 1,000 ML IVC SCH (11:05)
[2021-12-15] MEDS: Cyanocobalamin (B-12) 1,000 MCG TABLET PO SCH (12:51)
[2021-12-15] MEDS: carvediloL 6.25 MG TABLET PO SCH ×2 (12:51→18:59)
[2021-12-15] MEDS: Thiamine (B-1) 100 MG TABLET PO SCH (12:51)
[2021-12-15] MEDS: QUEtiapine Fumarate 25 MG TABLET PO SCH (20:11)
[2021-12-16] MEDS ORDERED: Haloperidol Lactate 5 MG/ML VIAL IVP ONE (00:23)
[2021-12-16] MEDS ORDERED: *HR* LORazepam 2 MG/ML VIAL IVP ONE (00:27)
[2021-12-16] MEDS: hydrALAZINE 25 MG TABLET PO SCH ×3 (00:28→15:58)
[2021-12-16] MEDS: 0.9 % Sodium Chloride 1,000 ML IVC SCH (01:06)
[2021-12-16] MEDS: Levalbuterol Neb 1.25 MG/3 ML IH SCH ×4 (03:54→20:25)
[2021-12-16 06:36] LABS: Hematocrit 37.8 % (37.5-50.1); Hemoglobin 11.3 g/dL (12.9-16.9); Mean Corpuscular HGB Conc 29.9 g/dL (31.6-35.5); Mean Corpuscular Hemoglobin 30.6 pg (28.0-33.3); Mean Corpuscular Volume 102.4 fL (83.0-100.0); Mean Platelet Volume 11.8 fL (9.4-12.4); Platelet Count 137 K/mcL (140-400); Red Blood Count 3.69 M/mcL (4.19-5.50); Red Cell Distribution Width 14.3 % (11.5-14.5)
[2021-12-16 07:01] LABS: Calcium 8.8 mg/dL (8.6-10.3); Magnesium 2.5 mg/dL (1.6-2.6); Potassium 4.9 mEq/L (3.5-5.1)
[2021-12-16] MEDS: Pantoprazole 40 MG VIAL IVP SCH (08:09)
[2021-12-16] MEDS: Albumin 25% 25gram/100mL 25 GM/100 ML IV.SOLN IVPB SCH ×3 (08:10→20:36)
[2021-12-16] MEDS: Thiamine (B-1) 100 MG TABLET PO SCH (08:11)
[2021-12-16] MEDS: Cyanocobalamin (B-12) 1,000 MCG TABLET PO SCH (08:11)
[2021-12-16] MEDS: carvediloL 6.25 MG TABLET PO SCH ×2 (08:11→16:05)
[2021-12-16] MEDS: Aspirin Enteric Coated 81 MG Tablet PO SCH (15:50)
[2021-12-17] MEDS ORDERED: 0.9 % Sodium Chloride 1,000 ML IV ONE (01:10)
[2021-12-17] MEDS: hydrALAZINE 25 MG TABLET PO SCH ×3 (02:12→15:02)
[2021-12-17] MEDS: Levalbuterol Neb 1.25 MG/3 ML IH SCH ×4 (04:02→19:23)
[2021-12-17 07:08] LABS: Red Cell Distribution Width 14.3 % (11.5-14.5)
[2021-12-17 07:09] LABS: Hematocrit 38.2 % (37.5-50.1); Mean Corpuscular HGB Conc 28.8 g/dL (31.6-35.5); Mean Corpuscular Hemoglobin 30.6 pg (28.0-33.3); Mean Corpuscular Volume 106.1 fL (83.0-100.0); Mean Platelet Volume 12.3 fL (9.4-12.4); Platelet Count 125 K/mcL (140-400); White Blood Count 6.6 K/mcL (4.3-11.1)
[2021-12-17] MEDS: Aspirin Enteric Coated 81 MG Tablet PO SCH (07:46)
[2021-12-17] MEDS: carvediloL 6.25 MG TABLET PO SCH ×2 (07:46→15:02)
[2021-12-17] MEDS: Thiamine (B-1) 100 MG TABLET PO SCH (07:49)
[2021-12-17] MEDS: Cyanocobalamin (B-12) 1,000 MCG TABLET PO SCH (07:50)
[2021-12-17] MEDS: Albumin 25% 25gram/100mL 25 GM/100 ML IV.SOLN IVPB SCH (07:58)
[2021-12-17 08:09] LABS: Calcium 8.9 mg/dL (8.6-10.3); Magnesium 2.7 mg/dL (1.6-2.6); Potassium 5.4 mEq/L (3.5-5.1)
[2021-12-17] MEDS ORDERED: D5% in Water 1,000 ML IVC SCH (09:15)
[2021-12-18] MEDS: hydrALAZINE 25 MG TABLET PO SCH ×3 (02:45→18:17)
[2021-12-18] MEDS: Levalbuterol Neb 1.25 MG/3 ML IH SCH ×3 (04:14→20:11)
[2021-12-18] MEDS: carvediloL 6.25 MG TABLET PO SCH ×2 (07:17→18:17)
[2021-12-18] MEDS: Aspirin Enteric Coated 81 MG Tablet PO SCH (07:17)
[2021-12-18] MEDS: Cyanocobalamin (B-12) 1,000 MCG TABLET PO SCH (07:18)
[2021-12-18] MEDS: Thiamine (B-1) 100 MG TABLET PO SCH (07:18)
[2021-12-18 07:23] LABS: Calcium 9.1 mg/dL (8.6-10.3); Magnesium 2.7 mg/dL (1.6-2.6); Potassium 4.9 mEq/L (3.5-5.1)
[2021-12-18 10:35] LABS: Hematocrit 37.5 % (37.5-50.1); Hemoglobin 11.2 g/dL (12.9-16.9); Mean Corpuscular HGB Conc 29.9 g/dL (31.6-35.5); Mean Corpuscular Hemoglobin 29.6 pg (28.0-33.3); Mean Corpuscular Volume 99.2 fL (83.0-100.0); Platelet Count 130 K/mcL (140-400); Red Blood Count 3.78 M/mcL (4.19-5.50); Red Cell Distribution Width 13.9 % (11.5-14.5); White Blood Count 7.9 K/mcL (4.3-11.1)
[2021-12-18] MEDS ORDERED: E-Z-PAQUE (BARIUM SULF) SUSP 1 BOTTLE PO ONE (11:46)
[2021-12-18] MEDS ORDERED: E-Z-HD (BARIUM SULF) SUSPENSION PO ONE (11:46)
[2021-12-18] MEDS: D5% in Water 1,000 ML IVC SCH ×2 (12:25→22:45)
[2021-12-18] MEDS ORDERED: *HR* Labetalol 20 MG/4 ML SYRINGE IVP ONE (23:52)
[2021-12-19] MEDS: hydrALAZINE 25 MG TABLET PO SCH ×3 (00:07→17:17)
[2021-12-19 06:15] LABS: Basophils % 0.5 %; Eosinophils # 0.2 K/mcL (0.0-0.6); Eosinophils % 2.5 %; Hematocrit 36.9 % (37.5-50.1); Immature Granulocytes % 0.7 % (0-4); Lymphocytes # 0.4 K/mcL (0.6-4.6); Lymphocytes % 6.4 %; Mean Corpuscular HGB Conc 29.8 g/dL (31.6-35.5); Mean Corpuscular Hemoglobin 29.5 pg (28.0-33.3); Mean Corpuscular Volume 98.9 fL (83.0-100.0); Monocytes # 0.5 K/mcL (0.0-1.3); Monocytes % 7.7 %; Platelet Count 118 K/mcL (140-400); Red Blood Count 3.73 M/mcL (4.19-5.50); Red Cell Distribution Width 14.1 % (11.5-14.5); Segmented Neutrophils % 82.2 %; White Blood Count 6.1 K/mcL (4.3-11.1)
[2021-12-19 06:28] LABS: Calcium 8.5 mg/dL (8.6-10.3); Potassium 4.2 mEq/L (3.5-5.1)
[2021-12-19] MEDS: Levalbuterol Neb 1.25 MG/3 ML IH SCH ×2 (08:42→21:32)
[2021-12-19] MEDS: Aspirin Enteric Coated 81 MG Tablet PO SCH (08:57)
[2021-12-19] MEDS: carvediloL 6.25 MG TABLET PO SCH ×2 (08:57→17:16)
[2021-12-19] MEDS: Cyanocobalamin (B-12) 1,000 MCG TABLET PO SCH (08:58)
[2021-12-19] MEDS: Thiamine (B-1) 100 MG TABLET PO SCH (08:58)
[2021-12-19 09:28] LABS: ABG Base Excess 7 mEq/L (-2 to 3); ABG HCO3 39 mEq/L (21-27); ABG Oxygen Saturation 97 % (95-98); ABG PCO2 98 mmHg (35-45); ABG PO2 111 mmHg (85-104); ABG TCO2 42 mEq/L (20-26)
[2021-12-19] MEDS ORDERED: D5% in Water 1,000 ML IVC SCH (09:45)
[2021-12-19 15:18] LABS: Bilirubin,Urine Negative (Negative); Blood,Urine Large (Negative); Clarity,Urine Turbid (Clear); Color,Urine Yellow (Yellow); Glucose,Urine (UA) 30 mg/dL (Normal); Hyaline Casts,Urine Few per lpf (None Seen); Ketones,Urine Negative (Negative); Leukocyte Esterase,Urine Negative (Negative); Mucus,Urine Few per lpf (None-Few); Nitrite,Urine Negative (Negative); Protein,Urine >=300 mg/dL (Neg-Trace); RBC,Urine 15-30 per hpf (0-3); Specific Gravity,Urine 1.018 (1.010-1.025); Squamous Epithelial Cell,Urine Few per hpf (None-Few); Urobilinogen,Urine Normal (Normal); WBC,Urine 30-50 per hpf (0-3)
[2021-12-19 15:56] LABS: Protein/Creatinine Ratio,Urine 2.86 mg/mg (0.00-0.20)
[2021-12-20] MEDS: hydrALAZINE 25 MG TABLET PO SCH ×3 (01:30→16:32)
[2021-12-20 05:50] LABS: Basophils % 0.3 %; Eosinophils # 0.3 K/mcL (0.0-0.6); Eosinophils % 4.8 %; Hematocrit 36.6 % (37.5-50.1); Hemoglobin 10.6 g/dL (12.9-16.9); Immature Granulocytes % 0.6 % (0-4); Lymphocytes # 0.5 K/mcL (0.6-4.6); Lymphocytes % 7.6 %; Mean Corpuscular Hemoglobin 29.3 pg (28.0-33.3); Mean Corpuscular Volume 101.1 fL (83.0-100.0); Mean Platelet Volume 11.9 fL (9.4-12.4); Monocytes # 0.6 K/mcL (0.0-1.3); Monocytes % 8.8 %; Neutrophils # 5.2 K/mcL (1.6-8.9); Platelet Count 114 K/mcL (140-400); Red Blood Count 3.62 M/mcL (4.19-5.50); Red Cell Distribution Width 13.7 % (11.5-14.5); Segmented Neutrophils % 77.9 %; White Blood Count 6.7 K/mcL (4.3-11.1)
[2021-12-20 06:13] LABS: Calcium 8.3 mg/dL (8.6-10.3); Potassium 4.1 mEq/L (3.5-5.1)
[2021-12-20 06:22] LABS: % Iron Saturation 12 % (20-55); Iron 20 mcg/dL (65-175); Transferrin 121 mg/dL (203-362)
[2021-12-20 06:28] LABS: Ferritin 423 ng/mL (20-250)
[2021-12-20] MEDS: Levalbuterol Neb 1.25 MG/3 ML IH SCH ×2 (07:44→20:09)
[2021-12-20] MEDS: carvediloL 6.25 MG TABLET PO SCH ×2 (09:15→16:32)
[2021-12-20] MEDS: Aspirin Enteric Coated 81 MG Tablet PO SCH (09:15)
[2021-12-20] MEDS: Thiamine (B-1) 100 MG TABLET PO SCH (09:16)
[2021-12-20] MEDS: Cyanocobalamin (B-12) 1,000 MCG TABLET PO SCH (09:16)
[2021-12-20] MEDS: Melatonin 3 MG TABLET PO PRN (21:34)
[2021-12-21] MEDS: hydrALAZINE 25 MG TABLET PO SCH ×3 (01:14→17:06)
[2021-12-21] MEDS: Levalbuterol Neb 1.25 MG/3 ML IH SCH ×2 (07:19→20:01)
[2021-12-21] MEDS: Aspirin Enteric Coated 81 MG Tablet PO SCH (09:01)
[2021-12-21] MEDS: Thiamine (B-1) 100 MG TABLET PO SCH (09:01)
[2021-12-21] MEDS: carvediloL 6.25 MG TABLET PO SCH ×2 (09:02→17:06)
[2021-12-21] MEDS: Cyanocobalamin (B-12) 1,000 MCG TABLET PO SCH (09:03)
[2021-12-21] MEDS: Ergocalciferol (VIT D2) 50,000 UNIT (1.25MG) CAP PO SCH (12:14)
[2021-12-21 18:54] VITALS: BP 146/75; PULSE 54; TEMP 97.8
[2021-12-21 18:58] VITALS: O2SAT 96
== END 2021-12-21 21:30 | disposition expired ==
LOC: 2ANU 07:27 → EMEROOARM 07:27 → SUATTDRO 10:07 → 2ANU 10:43 → SUATTDRO 12-04 17:32 → ICNU 12-04 20:53 → 2ANU 12-05 18:00 → 2NNU 12-06 14:38 → ICNU 12-11 19:46 → 3ANU 12-13 18:50
PROVIDERS: ADMIT Hospitalist; ATTEND Family Medicine